=== PATIENT | male | born 1960 | race Caucasian/White ===

== ENCOUNTER 2019-10-08 13:38 | Outpatient (CLI) | payer MEDICARE, OTHER, SELFPAY ==
--- NOTE | ~2019-10-08 | CT_ITS ---
EXAMINATION: CT brain wo/w con DATE: 10/08/2019 14:46 INDICATION: Episode of sudden headache and abnormal eye movement. TECHNIQUE: Computed tomography (CT) of the head was performed without and with 100 cc Omnipaque 350 i ntravenous contrast. The dose-length product was 1210.67 mGy-cm. The mA was adjusted according to pat ient size. Iterative reconstruction technique was employed. COMPARISON: CT dated 11/30/2015 FINDINGS: No acute intracranial hemorrhage, infarction, mass or mass effect. No ventriculomegaly or m idline shift. Basilar cisterns are patent. There are scattered mild periventricular and subcortical w jas matter changes, most likely related to small vessel ischemic disease (microangiopathy). Paranasa l sinuses and mastoids are pneumatized. No abnormal contrast enhancement. IMPRESSION: 1. No acute intracranial abnormality. 2: Chronic age-related findings. Reviewed, dictated and finalized at location A. OELECTRIC MECHANIC
--- NOTE | ~2019-10-08 | US_ITS ---
US breast RT complete DATE: 10/08/2019 14:18 INDICATION: Right mastodynia TECHNIQUE: Real-time and color flow imaging of the right breast COMPARISON: None FINDINGS: There is an irregular approximately 11 x 14 mm hypoechoic vascular lesion in the right suba reolar area, with posterior shadowing. This mass is very suspicious. Diagnostic right mammogram is re commended. IMPRESSION: BI-RADS Category 0: Incomplete; need additional imaging evaluation Recommendation: Diagnostic right mammogram Reviewed, dictated and finalized at [facility]. Reviewed, dictated and finalized at location A. ONAL SALES ASSOCIATE
== END 2019-10-08 13:39 | disposition home or self-care (01) ==
LOC: ANHIMG 13:41
PROVIDERS: PCP Internal Medicine; Visit Provider Physician Assistant
DX: I99.8 Other disorder of circulatory system (principal); G45.9 Transient cerebral ischemic attack, unspecified; N64.4 Mastodynia
CPT/HCPCS: 70470; 76641; Q9967

== ENCOUNTER → 2019-10-13 07:42 | Outpatient (CLI) | payer MEDICARE, OTHER, SELFPAY ==
--- NOTE | ~2019-10-13 | MM_ITS ---
E EXAMINATION: MM diagnostic mammo unilat RT HISTORY: Right breast lump TECHNIQUE: Full field digital craniocaudal and mediolateral oblique views of the right breast were ob tained. A left mediolateral oblique view was obtained for comparison. CAD analysis was submitted and interpreted. COMPARISON: No prior mammogram is available for comparison at this institution. BREAST PARENCHYMAL COMPOSITION: The breasts are almost entirely fatty. FINDINGS: There is flame-shaped subareolar density of the right breast which is slightly asymmetric w hen compared to the left. No discrete suspicious mass or architectural distortion is identified to ac count for the right breast pain. IMPRESSION: 1. Mammographic findings consistent with asymmetric gynecomastia. Further evaluation at this time jayne uld be based on clinical assessment. Continued follow-up physical examination is recommended. BI-RADS Category 2: Benign finding(s). Reviewed, dictated and finalized at location A. PAPER SUBSCRIPTION SOLICITOR IMPRESSION: 1. Mammographic findings consistent with asymmetric gynecomastia. Further evalu ation at this time should be based on clinical assessment. Continued follow-up physical examination is recommended. BI-RADS Category 2: Benign finding(s).
== END ==
PROVIDERS: PCP Internal Medicine; Visit Provider Physician Assistant
DX: N63.10 Unspecified lump in the right breast, unspecified quadrant (principal); N62 Hypertrophy of breast
CPT/HCPCS: 77065

== ENCOUNTER 2020-08-16 10:02 | Outpatient (CLI) | payer MEDICARE, OTHER, SELFPAY ==
--- NOTE | ~2020-08-16 | XR_ITS ---
XR lumbar spine 2-3V DATE: 08/16/2020 10:46 INDICATION: Back pain TECHNIQUE: AP, lateral, coned lateral lumbosacral views COMPARISON: 04/21/2019 FINDINGS: There is degenerative change at the apophyseal joints at L4-5 and L5-S1 with associated gra de 1 anterolisthesis at L4-5. There is mild degenerative disc disease at the lumbar interspaces and severe degenerative disc diseas e at L5-S1. No fracture or bone destruction. The included lower thoracic and lumbar pedicles are intact. The sacr oiliac joints appear normal. IMPRESSION: Multilevel degenerative disc disease, most pronounced at L5-S1 Grade 1 anterolisthesis at L4-5 due to degenerative change at the apophyseal joints Reviewed, dictated and finalized at location A. GN CHIEF IMPRESSION: Multilevel degenerative disc disease, most pronounced at L5-S1 Grade 1 anterolisthesis at L4-5 due to degenerative change at the apophyseal [place] ints
[2020-08-16 10:52] LABS: Alanine Aminotransferase 23 U/L (4-50); Albumin Level 4.1 g/dL (3.5-5.1); Alkaline Phosphatase 84 U/L (38-126); Anion Gap 6 mmol/L (8-16); Aspartate Amino Transferase 21 U/L (17-59); Bilirubin,Total 0.7 mg/dL (0.2-1.3); Blood Urea Nitrogen 15 mg/dL (9-20); Calcium 8.8 mg/dL (8.4-10.2); Carbon Dioxide 28 mmol/L (22-30); Chloride 104 mmol/L (98-107); Cholesterol 156 mg/dL (0-200); Estimated Glomerular Filt Rate > 60; Glucose 102 mg/dL (75-110); HDL Direct 33 mg/dL; Potassium 4.1 mmol/L (3.4-5.0); Sodium 138 mmol/L (137-145); Triglycerides 143 mg/dL (<150)
[2020-08-16 11:04] LABS: LDL Cholesterol Direct 91 mg/dL
[2020-08-16 11:23] LABS: Prostate Specific Antigen 0.6 ng/mL (< OR = 4.0)
[2020-08-16 11:58] LABS: Folic Acid 11.1 ng/mL (2.76->20)
[2020-08-19 12:58] LABS: Testosterone Free 46.8 pg/mL (35.0-155.0); Testosterone Total 266 ng/dL (250-1100)
== END 2020-08-16 10:03 | disposition home or self-care (01) ==
LOC: ANHLAB 10:04
PROVIDERS: PCP Internal Medicine; Visit Provider Internal Medicine
DX: Z12.5 Encounter for screening for malignant neoplasm of prostate (principal); R53.83 Other fatigue; E29.1 Testicular hypofunction; E55.9 Vitamin D deficiency, unspecified; M54.9 Dorsalgia, unspecified; M47.817 Spondylosis without myelopathy or radiculopathy, lumbosacral region
CPT/HCPCS: 36415; 72100; 80053; 80061; 82306; 82607; 82746; 84153; 84402; 84403; 84443; G0103

== ENCOUNTER 2020-08-17 10:10 | Outpatient (CLI) | payer MEDICARE, OTHER, SELFPAY ==
[2020-08-17 10:44] LABS: Basophils Absolute Auto 0.1 K/mm3 (0.0-0.1); Basophils Percent Auto 1.2 % (0.2-1.2); Eosinophils Absolute Auto 0.3 K/mm3 (0-0.3); Eosinophils Percent Auto 2.6 % (0-4.4); Hematocrit 45.3 % (42.0-52.0); Hemoglobin 15.4 g/dL (14.0-18.0); Immature Granulocyte Absolute 0.03 K/mm3 (0.00-0.031); Immature Granulocyte Percent A 0.3 % (0-0.5); Lymphocytes Absolute Auto 2.69 K/mm3 (0.9-3.2); Lymphocytes Percent Auto 25.6 % (18.3-44.2); Mean Corpuscular Hemoglobin 30.4 pg (26-34); Mean Corpuscular Volume 89.5 fl (80-100); Mean Platelet Volume 9.6 fl (7.4-10.4); Monocytes Absolute Auto 0.8 K/mm3 (0.1-0.6); Monocytes Percent Auto 7.2 % (2.6-8.5); Neutrophils Absolute Auto 6.6 K/mm3 (1.3-6.7); Neutrophils Percent Auto 63.1 % (45.5-73.1); Platelet Count Result 224 k/mm3 (150-375); Red Blood Count 5.06 M/mm3 (4.6-6.20); Red Cell Distribution Width 13.1 % (11.5-14.5); White Blood Count 10.5 K/mm3 (4.5-10.0)
== END 2020-08-17 10:11 | disposition home or self-care (01) ==
PROVIDERS: PCP Internal Medicine; Visit Provider Internal Medicine
DX: R53.83 Other fatigue (principal)
CPT/HCPCS: 36415; 85025

== ENCOUNTER 2020-09-13 08:02 | Outpatient (CLI) | payer MEDICARE, OTHER, SELFPAY ==
--- NOTE | ~2020-09-13 | MR_ITS ---
EXAMINATION: MR lumbar spine wo con EXAM DATE: 09/13/2020 08:58 INDICATION: M54.9 - Dorsalgia, bilateral hip and groin pain. Low back pain. Unsteady gait. TECHNIQUE: Multi-sequential, multiplanar MR images of the lumbar spine were obtained without contrast . Sagittal T1, T2, T2 fat saturation images. Axial T2 weighted images. There is no prior study for comparison. Correlation was made with lumbar x-ray 08/16/2020. FINDINGS: There is large amount of posterior epidural fat contributing to significantly narrow thecal sac. There is moderate disc disease at L5-S1, mild at the other lumbar levels. There is 3 mm anterol isthesis L4 on L5. The conus medullaris terminates at the T12-L1 level and has normal signal intensit y and morphology. There are no suspicious marrow signal abnormalities. Paraspinal soft tissue is unr emarkable. Mild chronic appearing compression fracture superior endplate of S1. Level by level evaluation: T12-L1: Disc does not extend beyond the endplate margin. Facet arthropathy: Mild left. Neural foraminal stenosis: No stenosis. Central canal stenosis: No stenosis. L1-L2: There is a minimal diffuse disc bulge. Facet arthropathy: Mild. Neural foraminal stenosis: No stenosis. Central canal stenosis: No stenosis. L2-L3: There is a mild diffuse disc bulge. Facet arthropathy: Mild. Neural foraminal stenosis: No stenosis. Central canal stenosis: No stenosis. L3-L4: There is a moderate diffuse disc bulge. Facet arthropathy: Moderate. Neural foraminal stenosis: Mild to moderate bilateral. Central canal stenosis: Mild to moderate (nerve roots are crowded with minimal CSF mostly due to epid ural fat). L4-L5: There is a mild to moderate diffuse disc bulge. Facet arthropathy: Severe. Neural foraminal stenosis: Mild to moderate bilateral. Central canal stenosis: Mild to moderate. L5-S1: There is a large diffuse disc bulge. Facet arthropathy: Mild to moderate. Neural foraminal stenosis: Moderate left, mild to moderate right. Central canal stenosis: Mild to moderate. IMPRESSION: 1. L3-4 moderate disc bulge with significantly narrowed thecal sac, but mostly from large amount of epidural fat. 2. Overall mild to moderate lumbar spondylosis as detailed above. Reviewed, dictated and finalized at location A. ARCH INSTRUCTOR
== END 2020-09-13 08:03 | disposition home or self-care (01) ==
PROVIDERS: PCP Internal Medicine; Visit Provider Internal Medicine
DX: R93.89 Abnormal findings on diagnostic imaging of other specified body structures (principal); M54.9 Dorsalgia, unspecified; M47.816 Spondylosis without myelopathy or radiculopathy, lumbar region; M51.26 Other intervertebral disc displacement, lumbar region
CPT/HCPCS: 72148

== ENCOUNTER 2021-03-08 13:35 | Outpatient (CLI) | payer MEDICARE, OTHER, SELFPAY ==
--- NOTE | ~2021-03-08 | CT_ITS ---
EXAMINATION: CT sinus wo con DATE: 03/08/2021 14:43 INDICATION: Chronic sinusitis, unspecified. TECHNIQUE: Computed tomography (CT) of the paranasal sinuses was performed without intravenous contra st. Iterative reconstruction technique was employed. The dose-length product was 309.35 mGy-cm. COMPARISON: Head CT 10/08/2019 FINDINGS: There is mild mucosal thickening in the frontal sinuses. The ethmoid and sphenoid sinuses a re clear. There is a small mucous retention cyst in right maxillary sinus. There is rightward deviati on of the nasal septum with a right lateral spur. The ostiomeatal units are patent. Multifocal dental disease is noted. IMPRESSION: 1. Mild mucosal thickening in the frontal sinuses and small mucous retention cyst in right maxillary sinus. 2. Rightward deviation of the nasal septum. 3. Dental disease. Reviewed, dictated and finalized at location A. IMPRESSION: 1. Mild mucosal thickening in the frontal sinuses and small mucous retention cy st in right maxillary sinus. 2. Rightward deviation of the nasal septum. 3. Dental disease.
[2021-03-08 14:51] LABS: Basophils Absolute Auto 0.2 K/mm3 (0.0-0.1); Basophils Percent Auto 1.3 % (0.2-1.2); Eosinophils Absolute Auto 0.2 K/mm3 (0-0.3); Eosinophils Percent Auto 1.3 % (0-4.4); Hematocrit 53.8 % (42.0-52.0); Hemoglobin 17.3 g/dL (14.0-18.0); Immature Granulocyte Absolute 0.05 K/mm3 (0.00-0.031); Immature Granulocyte Percent A 0.4 % (0-0.5); Lymphocytes Absolute Auto 2.61 K/mm3 (0.9-3.2); Lymphocytes Percent Auto 23.1 % (18.3-44.2); Mean Corpuscular HGB Conc 32.2 g/dl (32-36); Mean Corpuscular Hemoglobin 29.3 pg (26-34); Mean Platelet Volume 9.5 fl (7.4-10.4); Monocytes Absolute Auto 0.8 K/mm3 (0.1-0.6); Monocytes Percent Auto 6.8 % (2.6-8.5); Neutrophils Absolute Auto 7.6 K/mm3 (1.3-6.7); Neutrophils Percent Auto 67.1 % (45.5-73.1); Platelet Count Result 245 k/mm3 (150-375); Red Blood Count 5.91 M/mm3 (4.6-6.20); Red Cell Distribution Width 14.6 % (11.5-14.5); White Blood Count 11.3 K/mm3 (4.5-10.0)
[2021-03-08 15:01] LABS: Alanine Aminotransferase 26 U/L (4-50); Albumin Level 4.7 g/dL (3.5-5.1); Alkaline Phosphatase 68 U/L (38-126); Anion Gap 10 mmol/L (8-16); Aspartate Amino Transferase 27 U/L (17-59); Blood Urea Nitrogen 15 mg/dL (9-20); Calcium 9.1 mg/dL (8.4-10.2); Carbon Dioxide 27 mmol/L (22-30); Chloride 101 mmol/L (98-107); Cholesterol 184 mg/dL (0-200); Estimated Glomerular Filt Rate > 60; Glucose 89 mg/dL (75-110); HDL Direct 38 mg/dL; Potassium 4.1 mmol/L (3.4-5.0); Sodium 138 mmol/L (137-145); Triglycerides 131 mg/dL (<150)
[2021-03-08 15:12] LABS: LDL Cholesterol Direct 106 mg/dL
[2021-03-08 16:07] LABS: Folic Acid 13.5 ng/mL (2.76->20)
[2021-03-08 17:50] LABS: Vitamin D 25 Hydroxy 25.5 ng/mL
== END 2021-03-08 13:36 | disposition home or self-care (01) ==
LOC: ANHIMG 13:50
PROVIDERS: PCP Internal Medicine; Visit Provider Otolaryngology
DX: J32.9 Chronic sinusitis, unspecified (principal); R44.8 Other symptoms and signs involving general sensations and perceptions; R09.82 Postnasal drip; J34.3 Hypertrophy of nasal turbinates; J34.2 Deviated nasal septum; J31.2 Chronic pharyngitis; R53.83 Other fatigue; E78.49 Other hyperlipidemia; E55.9 Vitamin D deficiency, unspecified
CPT/HCPCS: 36415; 70486; 80053; 80061; 82306; 82607; 82746; 84443; 85025

== ENCOUNTER 2021-04-22 11:48 | Outpatient (CLI) | payer MEDICARE, OTHER, SELFPAY ==
[2021-04-22 13:15] LABS: Alanine Aminotransferase 28 U/L (4-50); Albumin Level 4.3 g/dL (3.5-5.1); Alkaline Phosphatase 90 U/L (38-126); Anion Gap 7 mmol/L (8-16); Aspartate Amino Transferase 28 U/L (17-59); Bilirubin,Total 0.7 mg/dL (0.2-1.3); Blood Urea Nitrogen 15 mg/dL (9-20); Calcium 8.8 mg/dL (8.4-10.2); Carbon Dioxide 25 mmol/L (22-30); Chloride 104 mmol/L (98-107); Estimated Glomerular Filt Rate > 60; Glucose 128 mg/dL (65-110); Lactate Dehydrogenase 530 U/L (313-618); Potassium 4.6 mmol/L (3.4-5.0); Sodium 136 mmol/L (137-145)
[2021-04-22 13:33] LABS: Basophils Absolute Auto 0.1 K/mm3 (0.0-0.1); Basophils Percent Auto 1.3 % (0.2-1.2); Eosinophils Absolute Auto 0.2 K/mm3 (0-0.3); Eosinophils Percent Auto 2.3 % (0-4.4); Hematocrit 51.6 % (42.0-52.0); Hemoglobin 16.8 g/dL (14.0-18.0); Immature Granulocyte Absolute 0.03 K/mm3 (0.00-0.031); Immature Granulocyte Percent A 0.3 % (0-0.5); Lymphocytes Absolute Auto 2.86 K/mm3 (0.9-3.2); Lymphocytes Percent Auto 27.2 % (18.3-44.2); Mean Corpuscular HGB Conc 32.6 g/dl (32-36); Mean Corpuscular Hemoglobin 29.4 pg (26-34); Mean Corpuscular Volume 90.4 fl (80-100); Mean Platelet Volume 10.1 fl (7.4-10.4); Monocytes Absolute Auto 0.8 K/mm3 (0.1-0.6); Monocytes Percent Auto 7.4 % (2.6-8.5); Neutrophils Absolute Auto 6.5 K/mm3 (1.3-6.7); Neutrophils Percent Auto 61.5 % (45.5-73.1); Platelet Count Result 237 k/mm3 (150-375); Red Blood Count 5.71 M/mm3 (4.6-6.20); Red Cell Distribution Width 13.8 % (11.5-14.5); White Blood Count 10.5 K/mm3 (4.5-10.0)
[2021-04-26 01:19] LABS: Albumin 3.7 g/dL (3.8-4.8); Alpha 1 Globulin 0.3 g/dL (0.2-0.3); Alpha 2 Globulin 0.8 g/dL (0.5-0.9); Beta 1 Globulin 0.5 g/dL (0.4-0.6); Gamma Globulin 1.2 g/dL (0.8-1.7); Protein, Total 6.9 g/dL (6.1-8.1)
[2021-04-27 20:37] LABS: Creatinine, Random Urine 248 mg/dL (20-320); Total Protein/Creatinine Ratio 69 mg/g creat (22-128)
== END 2021-04-22 11:49 | disposition home or self-care (01) ==
PROVIDERS: PCP Internal Medicine; Visit Provider Internal Medicine
DX: D72.829 Elevated white blood cell count, unspecified (principal); R77.8 Other specified abnormalities of plasma proteins
CPT/HCPCS: 36415; 80053; 82570; 83615; 84155; 84156; 84165; 84166; 85025

== ENCOUNTER 2022-02-18 10:50 | Outpatient (CLI) | payer MEDICARE, OTHER, SELFPAY ==
--- NOTE | ~2022-02-18 | XR_ITS ---
EXAMINATION: XR chest 2V 02/18/2022 11:15 INDICATION: Cough PROCEDURE: 2 view chest COMPARISON: Comparison to multiple prior studies sequentially, with oldest reviewed study dated 02/19. FINDINGS: The lungs are clear. The cardiomediastinal silhouette is within normal limits. There are no pleural effusions. There is no pneumothorax suspected. IMPRESSION: 1: NO ACUTE CARDIOPULMONARY DISEASE. Reviewed, dictated and finalized at location A.
[2022-02-18 11:12] LABS: Basophils Absolute Auto 0.1 K/mm3 (0.0-0.1); Basophils Percent Auto 1.3 % (0.2-1.2); Eosinophils Absolute Auto 0.2 K/mm3 (0-0.3); Eosinophils Percent Auto 2.1 % (0-4.4); Hematocrit 52.5 % (42.0-52.0); Hemoglobin 17.3 g/dL (14.0-18.0); Immature Granulocyte Absolute 0.04 K/mm3 (0.00-0.031); Immature Granulocyte Percent A 0.4 % (0-0.5); Lymphocytes Absolute Auto 2.69 K/mm3 (0.9-3.2); Mean Corpuscular Hemoglobin 30.1 pg (26-34); Mean Corpuscular Volume 91.5 fl (80-100); Mean Platelet Volume 9.6 fl (7.4-10.4); Monocytes Absolute Auto 0.7 K/mm3 (0.1-0.6); Monocytes Percent Auto 6.7 % (2.6-8.5); Neutrophils Absolute Auto 6.9 K/mm3 (1.3-6.7); Neutrophils Percent Auto 64.5 % (45.5-73.1); Platelet Count Result 220 k/mm3 (150-375); Red Blood Count 5.74 M/mm3 (4.6-6.20); Red Cell Distribution Width 13.3 % (11.5-14.5); White Blood Count 10.8 K/mm3 (4.5-10.0)
[2022-02-18 11:28] LABS: Alanine Aminotransferase 32 U/L (6-50); Albumin Level 4.8 g/dL (3.5-5.1); Alkaline Phosphatase 73 U/L (38-126); Anion Gap 7 mmol/L (8-16); Aspartate Amino Transferase 24 U/L (17-59); Bilirubin,Total 1.2 mg/dL (0.2-1.3); Blood Urea Nitrogen 16 mg/dL (9-20); Calcium 8.8 mg/dL (8.4-10.2); Carbon Dioxide 27 mmol/L (22-30); Chloride 103 mmol/L (98-107); Cholesterol 192 mg/dL (0-200); Estimated Glomerular Filt Rate > 60; Glucose 96 mg/dL (65-110); HDL Direct 40 mg/dL; Potassium 4.5 mmol/L (3.4-5.0); Sodium 137 mmol/L (137-145); Triglycerides 151 mg/dL (<150)
[2022-02-18 11:36] LABS: LDL Cholesterol Direct 104 mg/dL
[2022-02-18 11:55] LABS: Prostate Specific Antigen 0.6 ng/mL (< OR = 4.0)
[2022-02-18 12:31] LABS: Folic Acid 8.7 ng/mL (2.76->20)
[2022-02-18 12:34] LABS: Vitamin D 25 Hydroxy 34.1 ng/mL
== END 2022-02-18 10:51 | disposition home or self-care (01) ==
PROVIDERS: PCP Internal Medicine; Visit Provider Internal Medicine
DX: E03.9 Hypothyroidism, unspecified (principal); E55.9 Vitamin D deficiency, unspecified; E78.49 Other hyperlipidemia; R53.83 Other fatigue; Z12.5 Encounter for screening for malignant neoplasm of prostate; G47.00 Insomnia, unspecified; G45.9 Transient cerebral ischemic attack, unspecified; R05.9 Cough, unspecified
CPT/HCPCS: 36415; 71046; 80053; 80061; 82306; 82607; 82746; 84153; 84439; 84443; 85025; G0103

== ENCOUNTER 2023-06-29 00:48 | Day surgery (SDC) | payer MEDICARE, OTHER, SELFPAY ==
[2023-06-20 13:38] VITALS: BMI 39.4
[2023-06-29 11:15] VITALS: BMI 39.2
[2023-06-29 11:19] VITALS: BP 118/89; PULSE 92; RESP 18; TEMP 36.8; O2SAT 97
[2023-06-29] MEDS: LACTATED RINGERS 1,000 ML 150 ML IV CONT (11:26)
--- NOTE | 2023-06-29 11:44 | P.PNAN_ITS ---
Anes - Initial Pre Proc Eval Procedure: Operation Date: 06/29/23 12:30 Proposed Procedures p Esophagogastroduodenoscopy EGD - Gold Leonard MD Date/Time: 06/29/23 11:44 Surgeon: Gold Leonard MD Pre Op Diagnosis: GERD w/o esophagitis, Pain in throat Patient Data Age: 63 Gender: M Height: 1.83 m Weight: 131.3 kg Last Vital Signs Temp 98.2 F 06/29/23 11:19 Pulse 92 06/29/23 11:19 Resp 18 06/29/23 11:19 BP 118/89 06/29/23 11:19 Pulse Ox 97 06/29/23 11:19 O2 Del Method Room Air 06/29/23 11:19 Allergies Allergy/AdvReac Type Severity Reaction Status Date / Time cefuroxime Allergy Mild Rash Verified 06/29/23 11:13 Penicillins Allergy Mild rash Verified 06/29/23 11:13 hydrocodone AdvReac Mild ITCHING Verified 06/29/23 11:13 Home Medications Medication Instructions Recorded Confirmed Type fluticasone propionate 50 2 spray intranasal DAILY #47.4 mL 09/23/21 06/29/23 Rx mcg/actuation nasal spray,suspension (Flonase Allergy Relief) azelastine 137 mcg (0.1 %) nasal 1 spray .Route Q12H #30 mL 12/08/21 06/29/23 Rx spray aerosol omeprazole 40 mg capsule,delayed 40 mg PO BID #180 caps 04/21/23 06/29/23 Rx release levothyroxine 50 mcg tablet 50 mcg PO DAILY #90 tabs 05/31/23 06/29/23 Rx cetirizine 10 mg tablet (Zyrtec) 10 mg PO DAILY #90 tabs 06/12/23 06/29/23 Rx Patient hx anesthesia problems: none Family hx anesthesia problems: none Results Review: All pre-operative results and documents have been reviewed as part of the pre-operative evaluation. [facility] Family History Family History Other Diabetes mellitus Social History Social History Smoking status: Former smoker Tobacco type: cigarettes Second hand tobacco smoke exposure: No Smoking end date: 09/10/90 Alcohol intake: never Substance use: never Substance use type: does not use Lack of Transportation: No Lack of Food: Never True Current Housing: I Have Housing Concerned About Future Housing: No Difficulty Paying Gas/Electric Bills: YES Difficulty Paying for Meds: No Currently Unemployed: No Education: High School Diploma/GED Difficulty w/ Childcare or Family Care: No Living arrangements: with family Spiritual care concerns: No Anes - Eval Final PreProcedure Day of Procedure 06/29/23 11:44 Patient weight: morbidly obese Heart: regular rate and rhythm Lungs: clear to auscultation Airway: Mallampati scale class III Neurological: alert and oriented Last oral intake: >/= 8 hours ASA classification: III Emergent: no Anesthetic plan: proceed Anesthesia type and monitoring: general GIVS and standard monitoring Results Review: All pre-operative results and documents have been reviewed as part of the pre- operative evaluation. Informed Consent: The patient's anesthetic plan and its attendant risks and benefits were discussed with the patient/family/POA. Questions were solicited and answers provided to the satisfaction of the patient/family/POA.
--- NOTE | 2023-06-29 12:26 | PM.HPGS ---
History of Present Illness History of Present Illness Consent: Risks, benefits, and alternatives have been discussed and questions answered. Patient agrees to proceed with procedure. Chief complaint: GERD w/o esophagitis, Pain in throat Narrative: Teo Agrawal is a 63 year old male with sore throat for 3 years seeing ent, also gerd on omeprazole, denies dyphagia. Had egd few years ago Review of Systems Constitutional: Constitutional: Denies headache(s) and Denies weakness Eyes: Eyes: Denies blurry vision ENT: Reports Normal hearing present, Denies headache(s) and Denies neck pain Cardiovascular: Cardiovascular: Denies chest pain and Denies dyspnea Respiratory: Respiratory: Denies dyspnea Gastrointestinal: Gastrointestinal: Reports no additional gastrointestinal complaints Genitourinary: Genitourinary: Denies dysuria Musculoskeletal: Musculoskeletal: Denies neck pain Integumentary/Breasts: Skin/Breast: Denies dry skin Neurologic: Reports Normal hearing present, Denies headache(s) and Denies weakness Psychiatric: Psychiatric: Denies anxiety Endocrine: Endocrine: Denies change in body appearance Hematologic/Lymphatic: Hematologic/Lymphatic: Denies easy bleeding Allergic/Immunologic: Allergic/Immunologic: Denies urticaria PMFSH Family History Family History Other Diabetes mellitus Social History Social History Smoking status: Former smoker Tobacco type: cigarettes Second hand tobacco smoke exposure: No Smoking end date: 09/10/90 Alcohol intake: never Substance use: never Substance use type: does not use Lack of Transportation: No Lack of Food: Never True Current Housing: I Have Housing Concerned About Future Housing: No Difficulty Paying Gas/Electric Bills: YES Difficulty Paying for Meds: No Currently Unemployed: No Education: High School Diploma/GED Difficulty w/ Childcare or Family Care: No Living arrangements: with family Spiritual care concerns: No Meds Home Medications and Allergies Home Medications Medication Instructions Recorded Confirmed Type fluticasone propionate 50 2 spray intranasal DAILY #47.4 mL 09/23/21 06/29/23 Rx mcg/actuation nasal spray,suspension (Flonase Allergy Relief) azelastine 137 mcg (0.1 %) nasal 1 spray .Route Q12H #30 mL 12/08/21 06/29/23 Rx spray aerosol omeprazole 40 mg capsule,delayed 40 mg PO BID #180 caps 04/21/23 06/29/23 Rx release levothyroxine 50 mcg tablet 50 mcg PO DAILY #90 tabs 05/31/23 06/29/23 Rx cetirizine 10 mg tablet (Zyrtec) 10 mg PO DAILY #90 tabs 06/12/23 06/29/23 Rx Allergies Allergy/AdvReac Type Severity Reaction Status Date / Time cefuroxime Allergy Mild Rash Verified 06/29/23 11:13 Penicillins Allergy Mild rash Verified 06/29/23 11:13 hydrocodone AdvReac Mild ITCHING Verified 06/29/23 11:13 Vital Signs Vital Signs - 24 hr 06/29/23 11:19 Temperature 98.2 F Pulse Rate 92 Respiratory Rate 18 Blood Pressure 118/89 Pulse Oximetry 97 Oxygen Delivery Room Air Exam Const: General: comfortable and no acute distress HENMT: Face/Nose/Sinus: Normal nares present Eyes: General: appearance normal, both eyes and all related structures Neck: Neck: no JVD Resp: Auscultation: clear to auscultation bilaterally Cardio: Rate: regular rate Rhythm: regular rhythm GI: Inspection: non-distended GI Palp: Yes Soft to palpation Skin: General skin exam: normal color Neuro: General: gait normal Speech: normal speech Extrem: General: normal to inspection Psych: Mental Status: mental status grossly normal Assessment and Plan Assessment and plan (1) Throat pain in adult: Code(s): R07.0 - Pain in throat Status: Acute Assessment and Plan: egd (2) GERD (gastroesophageal reflux disease): Code(s): K21.9 - Gastro-esophageal reflux d
[2023-06-29 12:42] VITALS: BP 127/86; PULSE 81; RESP 18; O2SAT 94
[2023-06-29 12:52] VITALS: BP 106/79; PULSE 84; RESP 18; O2SAT 96
[2023-06-29 13:02] VITALS: BP 125/82; PULSE 79; RESP 18; O2SAT 95
== END 2023-06-29 13:14 | disposition home or self-care (01) ==
PROVIDERS: PCP Internal Medicine; Visit Provider Internal Medicine Gastroenterology
PROC: 0DJ08ZZ Inspection of Upper Intestinal Tract, Via Natural or Artificial Opening Endoscopic (ICD-10-PCS; CPT 43235; principal; 2023-06-29 12:30)
DX: K21.9 Gastro-esophageal reflux disease without esophagitis (principal); K29.50 Unspecified chronic gastritis without bleeding; Z87.891 Personal history of nicotine dependence; E66.01 Morbid (severe) obesity due to excess calories; Z68.39 Body mass index [BMI] 39.0-39.9, adult
CPT/HCPCS: 43239; 88305; J2704; J7120

== ENCOUNTER 2023-07-25 07:22 | Outpatient (CLI) | payer MEDICARE, OTHER, SELFPAY ==
[2023-08-01 13:16] LABS: Testosterone Free 18.1 pg/mL (35.0-155.0); Testosterone Total 144 ng/dL (250-1100)
[2023-08-01 13:26] LABS: Vitamin B6 13.1 ng/mL (2.1-21.7)
[2023-08-02 21:21] LABS: Estradiol, Ultrasensitive 15 pg/mL (< OR = 29)
== END 2023-07-25 07:23 | disposition home or self-care (01) ==
PROVIDERS: PCP Internal Medicine
DX: M25.50 Pain in unspecified joint (principal); R53.83 Other fatigue; R68.82 Decreased libido; R63.5 Abnormal weight gain; N52.9 Male erectile dysfunction, unspecified
CPT/HCPCS: 36415; 82607; 82670; 84207; 84402; 84403

== ENCOUNTER 2023-10-18 07:44 | Outpatient (CLI) | payer MEDICARE, OTHER, SELFPAY ==
--- NOTE | ~2023-10-18 | CT_ITS ---
Non-contrast Head CT History: TIA Technique: Axial non-contrast imaging of the brain was performed. Dose reduction technique was used on this scan by utilizing automated exposure control and iterative reconstruction technique. The dose -length product (DLP) was 681.00 mGy-cm. Findings: There is no evidence of intracranial hemorrhage, mass lesion, or acute infarct. Brain par enchyma appears normal. The ventricles and subarachnoid spaces are normal in size. The calvarium ap pears normal. The visualized paranasal sinuses and mastoid air cells are clear. Impression: No significant abnormality seen. Reviewed, dictated and finalized at location . PRESSER Impression: No significant abnormality seen.
== END 2023-10-18 07:45 | disposition home or self-care (01) ==
PROVIDERS: PCP Internal Medicine; Visit Provider Physician Assistant
DX: G45.9 Transient cerebral ischemic attack, unspecified (principal)
CPT/HCPCS: 70450

== ENCOUNTER 2024-02-18 10:14 | Outpatient (CLI) | payer MEDICARE, OTHER, SELFPAY ==
--- NOTE | ~2024-02-18 | XR_ITS ---
Clinical Indication: Cough PA and lateral views of the chest: Comparison: 02/18/2022 Findings: The lungs are clear, without evidence of focal consolidation or pleural effusion. Cardiome diastinal silhouette is within normal limits. Bones and soft tissues are unremarkable, aside from cer vical spine fixation hardware. Impression: Normal chest. Reviewed, dictated and finalized at location . Impression: Normal chest.
[2024-02-18 10:35] LABS: Basophils Absolute Auto 0.1 K/mm3 (0.0-0.1); Basophils Percent Auto 1.6 % (0.2-1.2); Eosinophils Absolute Auto 0.3 K/mm3 (0-0.3); Eosinophils Percent Auto 3.2 % (0-4.4); Hematocrit 48.1 % (42.0-52.0); Hemoglobin 16.1 g/dL (14.0-18.0); Immature Granulocyte Absolute 0.05 K/mm3 (0.00-0.031); Immature Granulocyte Percent A 0.6 % (0-0.5); Lymphocytes Absolute Auto 2.62 K/mm3 (0.9-3.2); Lymphocytes Percent Auto 29.1 % (18.3-44.2); Mean Corpuscular HGB Conc 33.5 g/dl (32-36); Mean Corpuscular Hemoglobin 30.5 pg (26-34); Mean Corpuscular Volume 91.1 fl (80-100); Mean Platelet Volume 9.5 fl (7.4-10.4); Monocytes Absolute Auto 0.7 K/mm3 (0.1-0.6); Monocytes Percent Auto 7.9 % (2.6-8.5); Neutrophils Absolute Auto 5.2 K/mm3 (1.3-6.7); Neutrophils Percent Auto 57.6 % (45.5-73.1); Platelet Count Result 192 k/mm3 (150-375); Red Blood Count 5.28 M/mm3 (4.6-6.20); Red Cell Distribution Width 15.6 % (11.5-14.5)
[2024-02-18 10:47] LABS: Alanine Aminotransferase 29 U/L (6-50); Albumin Level 4.3 g/dL (3.5-5.1); Alkaline Phosphatase 79 U/L (38-126); Anion Gap 7 mmol/L (4-12); Aspartate Amino Transferase 27 U/L (17-59); Bilirubin,Total 1.2 mg/dL (0.2-1.3); Blood Urea Nitrogen 14 mg/dL (9-20); Calcium 8.9 mg/dL (8.4-10.2); Carbon Dioxide 26 mmol/L (22-30); Chloride 105 mmol/L (98-107); Cholesterol 156 mg/dL (0-200); Estimated Glomerular Filt Rate > 60; Glucose 106 mg/dL (65-110); HDL Direct 34 mg/dL; Potassium 4.3 mmol/L (3.4-5.0); Sodium 138 mmol/L (137-145); Triglycerides 116 mg/dL (<150)
[2024-02-18 10:58] LABS: LDL Cholesterol Direct 101 mg/dL
[2024-02-18 11:06] LABS: Vitamin D 25 Hydroxy 44.2 ng/mL
[2024-02-20 18:14] LABS: Testosterone Total 832 ng/dL (250-1100)
== END 2024-02-18 10:15 | disposition home or self-care (01) ==
LOC: ANHLAB 10:18
PROVIDERS: PCP Internal Medicine; Visit Provider Internal Medicine
DX: E55.9 Vitamin D deficiency, unspecified (principal); Z12.5 Encounter for screening for malignant neoplasm of prostate; I10 Essential (primary) hypertension; R53.83 Other fatigue; R77.8 Other specified abnormalities of plasma proteins; E29.1 Testicular hypofunction; R05.3 Chronic cough
CPT/HCPCS: 36415; 71046; 80053; 80061; 82306; 84153; 84403; 85025; G0103

== ENCOUNTER 2024-06-14 09:39 | Outpatient (CLI) | payer MEDICARE, OTHER, SELFPAY ==
[2024-06-14 10:47] LABS: Vitamin D 25 Hydroxy 47.2 ng/mL
[2024-06-20 12:38] LABS: Testosterone Free 109.8 pg/mL (35.0-155.0); Testosterone Total 476 ng/dL (250-1100)
== END 2024-06-14 09:40 | disposition home or self-care (01) ==
PROVIDERS: PCP Internal Medicine; Visit Provider Internal Medicine
DX: E55.9 Vitamin D deficiency, unspecified (principal); E29.1 Testicular hypofunction
CPT/HCPCS: 36415; 82306; 84402; 84403

== ENCOUNTER 2024-06-26 11:52 | Outpatient (CLI) | payer MEDICARE, OTHER, SELFPAY ==
--- NOTE | ~2024-06-26 | XR_ITS ---
EXAMINATION: XR_CERV2-3V_CR DATE: 06/26/2024 13:04 INDICATION: Neck pain. TECHNIQUE: 4 views of cervical spine were obtained. COMPARISON: CT cervical spine 12/01/2015 FINDINGS: There are changes of anterior fusion procedure at C4-C5 with interbody bone graft and anter ior plate and screws. There is interbody fusion at C5-C6. There are changes of posterior fusion proce dure from C4 to C7 with lateral mass screws. Vertebral body heights are normal. There is severely dec reased disc height at C6-C7. There is multilevel facet joint osteoarthritis, severe on the right at C 3-C4. No central canal stenosis. IMPRESSION: 1. Anterior fusion from C4 to C6 and posterior fusion from C4 to C7. 2. Mild cervical spondylosis. Reviewed, dictated and finalized at location A.
--- NOTE | ~2024-06-26 | XR_ITS ---
EXAMINATION: XR lumbar spine 2-3V DATE: 06/26/2024 13:04 INDICATION: Low back pain. TECHNIQUE: 3 views of lumbar spine were obtained. COMPARISON: Lumbar spine 08/16/2020 FINDINGS: There is 4 degrees levocurvature of lumbar spine. There is 3 mm anterolisthesis of L4 on L5 . Vertebral body heights are normal. There is mildly decreased disc at L2-L3 and moderately decreased disc height at L3-L4 and L5-S1. There is multilevel severe facet joint osteoarthritis. IMPRESSION: 1. Moderate lumbar spondylosis, worsened from 08/16/2020. Reviewed, dictated and finalized at location A.
== END 2024-06-26 11:53 | disposition home or self-care (01) ==
DX: M99.01 Segmental and somatic dysfunction of cervical region (principal); M47.26 Other spondylosis with radiculopathy, lumbar region; M47.22 Other spondylosis with radiculopathy, cervical region; Z98.1 Arthrodesis status
CPT/HCPCS: 72040; 72100

== ENCOUNTER 2024-09-08 14:28 | Outpatient (CLI) | payer MEDICARE, OTHER, SELFPAY ==
[2024-09-13 04:38] LABS: Estradiol, Ultrasensitive 25 pg/mL (< OR = 29)
[2024-09-13 16:18] LABS: Testosterone Free 76.9 pg/mL (35.0-155.0); Testosterone Total 376 ng/dL (250-1100)
== END 2024-09-08 14:29 | disposition home or self-care (01) ==
LOC: ANHLAB 14:29
PROVIDERS: PCP Internal Medicine; Visit Provider Internal Medicine
DX: E03.9 Hypothyroidism, unspecified (principal); E29.1 Testicular hypofunction; Z92.29 Personal history of other drug therapy
CPT/HCPCS: 36415; 82670; 84402; 84403; 84443

== ENCOUNTER 2024-10-23 09:18 | Outpatient (CLI) | payer MEDICARE, OTHER, SELFPAY ==
--- NOTE | ~2024-10-23 | CT_ITS ---
EXAMINATION:CT chest high resolution [facility] DATE: 10/23/2024 09:37 INDICATION: Other forms of dyspnea. TECHNIQUE: Computed tomography (CT) of the chest was performed without intravenous contrast. Automate d exposure control and iterative reconstruction technique were employed. The dose-length product (DLP ) was 686.18 mGy-cm. COMPARISON: Chest CT 01/01/2015 FINDINGS: There is peripheral septal thickening in the lungs with a lower lung predominance. There is mild bronchiectasis in the inferior lungs. No honeycombing. Calcified bilateral lung nodules and aye cified left hilar lymph nodes are consistent with old granulomatous disease. No pleural effusion. The heart size is normal. There are coronary artery calcifications. No pericardial effusion. There is bi lateral gynecomastia. There are bridging endplate osteophytes at multiple levels in the spine, consis tent with diffuse idiopathic skeletal hyperostosis (DISH). IMPRESSION: 1. Worsened mild chronic interstitial lung disease in a pattern of nonspecific interstitial pneumonia (NSIP) versus usual interstitial pneumonia (UIP). Reviewed, dictated and finalized at location A. FRUIT
== END 2024-10-23 09:19 | disposition home or self-care (01) ==
LOC: MICIMG 09:19
PROVIDERS: PCP Internal Medicine; Visit Provider Internal Medicine
DX: R06.09 Other forms of dyspnea (principal); J84.9 Interstitial pulmonary disease, unspecified
CPT/HCPCS: 71250

== ENCOUNTER 2024-12-12 13:12 | Outpatient (CLI) | payer MEDICARE, SELFPAY ==
--- NOTE | ~2024-12-12 | MR_ITS ---
MRI of the lumbar spine Clinical History: Back pain Technique: Axial T2-weighted images, and sagittal T1-weighted, T2-weighted, and and T2 fat-sat images were acquired. COMPARISON: 09/13/2020 Findings: There is minimal grade 1 retrolisthesis of L5 over S1. Stable osseous alignment prior exam. No acute fracture. No suspicious bone marrow signal abnormality. Small Schmorl's node probably devel oping at the superior endplate of L4. At L1-L2, there is no disc bulge or herniation. There is moderate to advanced facet arthropathy. No c entral canal stenosis or neural foraminal narrowing. At L2-L3, there is minimal disc bulge with moderate facet arthropathy. No central canal stenosis or n eural foraminal narrowing. At L3-L4, there is mild degenerative disc narrowing. There is diffuse disc bulge/protrusion with keith re facet arthropathy. Prominent epidural fat is also present. These factors all contribute to severe spinal canal stenosis/thecal sac compression. Neural foramina are preserved. At L4-L5, there is mild disc bulge with severe facet arthropathy. There is mild central canal stenosi s. Neural foramina are preserved. At L5-S1, there is moderate degenerative distended with diffuse disc bulge and moderate to advanced f acet arthropathy. No central canal stenosis. There is moderate bilateral neural foraminal narrowing. Paravertebral soft tissues are unremarkable. Impression: Severe degenerative spondylosis at L3-L4, as detailed above. Mild degenerative change at the remainde r of the lumbar spine. Reviewed, dictated and finalized at [facility]. Impression: Severe degenerative spondylosis at L3-L4, as detailed above. Mild degenerative change at the remainder of the lumbar spine.
== END 2024-12-12 13:13 | disposition home or self-care (01) ==
LOC: MICIMG 13:13
PROVIDERS: PCP Internal Medicine; Visit Provider Internal Medicine
DX: M47.896 Other spondylosis, lumbar region (principal); G89.29 Other chronic pain
CPT/HCPCS: 72148